=== PATIENT | male | born 1970 | race Caucasian/White ===

== ENCOUNTER → 2019-04-26 05:54 | Day surgery (SDC) | payer BC ==
[~2019-04-26 05:54] MED LIST: Acetaminophen TAB* 325 MG PO PRN; Buffered Lidocaine 1% SYRIN* 1 ML/SYRINGE INTRADERM ONE; Bupivacaine 0.5%* 50 ML MDV VIAL ONE; DiMENhydriNATE IV* 50 MG/ML VIAL IV PUSH PRN; Famotidine IV* 10 MG/ML 2 ML (20 mg) IV ONE; Famotidine IV* 10 MG/ML 2 ML (20 mg) ONE; HYDROmorphone INJ1* 1 MG/ML SYRINGE IV PRN; Ketorolac INJ* 30 MG/ML 1 ML VIAL ONE; Lactated Ringers 1000 ML Bag* 1,000 ML IV SCH; Lidocaine 2% PF * 5 ML VIAL ONE; Midazolam* 1 MG/ML 5 ML VIAL (5 MG) ONE; Naloxone* 0.4 MG/ML 1 ML VIAL IV PRN; Ondansetron INJ* 2 MG/ML VIAL ONE; Propofol* 10 MG/ML 20 ML BTL ONE; ceFAZolin 2 GM in NS PREMIX(*) 2 GM/100 ML BAG IVPB ONE; fentaNYL* 50 MCG/ML 2 ML VIAL (100 MCG VIAL) ONE
[2019-04-26 10:04] VITALS: BP 152/89
--- NOTE | 2019-04-26 13:21 | OP ---
Operative Report - Blank - Operative Report Date of Operation: 04/26/19 Note: PATIENT: Ismael Rm DATE OF : 1970 DATE OF SURGERY: 04/26/2019 SURGEON: Shamar Jordan MD RRTS: ANTONI Obando, whos assistance was necessary for positioning, retraction, help with instrumentation, and closure. ANESTHESIOLOGIST: Dr. Zaragoza PREOPERATIVE DIAGNOSIS: Right foot hallux valgus deformity POSTOPERATIVE DIAGNOSIS: Right foot hallux valgus deformity OPERATION: Right foot hallux valgus correction with biplanar chevron osteotomy ANESTHESIA: MAC IMPLANTS: Arthrex 3.0mm cortical screw TOURNIQUET TIME: Less than one hour with a well-padded thigh tourniquet at 250mmHg SPECIMENS: None ESTIMATED BLOOD LOSS: Minimal COMPLICATIONS: none STATUS: Stable from the operating room to the recovery room and then home. INDICATIONS FOR PROCEDURE: Ismael has had persistent pain at his bunion deformity despite extensive non- operative treatment. Both operative and non-operative treatment alternatives were reviewed. Further, the nature and risks of surgery were reviewed in careful detail, in the office as well as the pre-operative holding area. Our discussions regarding the risks of surgery included, but were not limited to, infection, wound problems, nerve injury, neuroma, RSD, persistent symptoms, blood clot, recurrence of the hallux valgus deformity, hallux varus deformity, imperfect reduction, metatarsal fracture, nonunion, malunion, AVN, need for further surgery, failure of the surgery, and even the remote chance of catastrophic complication, including loss of limb. DESCRIPTION OF PROCEDURE: The patient was seen in the preoperative holding unit and informed written consent was obtained. The appropriate extremity was marked. The patient was then brought to the operating room and carefully positioned on the operating room table. Anesthesia was induced. All bony prominences were padded with great care. A chlorhexidine based pre-scrub was performed followed by a chloraprep prep and drape in standard sterile fashion. A surgical safety pause was then conducted in which we confirmed the appropriate patient, extremity, planned procedure, availability of equipment, indication and administration of prophylactic antibiotics, and DVT prophylaxis in the form of a compression boot on the non-surgical extremity. I began with Esmarch exsanguination of the limb and inflated the tourniquet. I made a longitudinal incision over the medial aspect of the first MTP joint, centered at the first MTP joint. Dissection was carried down to the capsular layer. The dorsomedial cutaneous nerve was protected throughout. The capsule was opened in line with the skin incision. I then used an oscillating saw to perform an exostectomy of the medial eminence of the first MTP head flush with the metaphyseal flare proximally. I started the osteotomy 1mm medial to the sagittal sulcus. The dorsomedial prominence was then contoured with a rongeur. I then distracted the joint and used a 15 blade to carefully release the lateral joint capsule. I then marked out the cuts for the chevron osteotomy. The dorsal limb was rotated more vertically and the plantar limb more horizontally. I then used a small oscillating saw blade to carefully perform the osteotomy. I then removed a lateral wedge of bone from the dorsal limb with an oscillating saw to perform the biplanar part of the osteotomy. The distal fragment was then translated laterally 5-6 mm. This was also rotated to address the medial closing wedge. A 0.045 K wire was placed to provisionally hold the osteotomy reduced. This was checked fluoroscopically. I then drilled and measured for a 3.0 mm cortical screw. The screw was placed with excellent bite. I then trimmed away the medial overhang of the metatarsal with the oscillating saw blade. I then simulated an imbrication of the medial capsule and obtained fluoroscopic images. I then formally imbricated and repaired the medial first MTP joint capsule utilizing several advancing horizontal mattress sutures with #1 Vicryl. The wound was copiously irrigated and meticulously closed in layers utilizing 3- 0 Monocryl and 3-0 nylon. A sterile dressing was then applied, along with a bunion bolster. The patient was then awakened from anesthesia and transferred to the recovery room in stable condition. There were no complications. All needle and sponge counts were correct at the end of the case. ATTESTATION: I attest I was present and scrubbed and performed the critical portions of the procedure myself. POSTOPERATIVE PLAN: The patient will remain heel weightbearing in a postop shoe or Aircast boot for anticipated duration of 6 weeks. Followup will be in 2 weeks for likely suture removal, Steri-Strip application, and reapplication of the bunion bolster.
== END | disposition home or self-care (01) ==
LOC: OR 05:54
PROVIDERS: ATTEND Orthopaedic Surgery
PROC: 0QSN04Z Reposition Right Metatarsal with Internal Fixation Device, Open Approach (ICD-10-PCS; principal; 2019-04-26 07:30)
DX: M20.11 Hallux valgus (acquired), right foot (principal); M17.10 Unilateral primary osteoarthritis, unspecified knee; M76.61 Achilles tendinitis, right leg
CPT/HCPCS: 76000; C1713; C1776; J0690; J1885; J2250; J2405; J2704; J3010; J3490